=== PATIENT | male | born 2000 | race Caucasian/White ===

== ENCOUNTER 2021-09-16 07:35 | Emergency (ER) | payer OTHER ==
[~2021-09-16] VITALS: Ht 175.3 cm; Wt 59.0 kg
[2021-09-16] MEDS ORDERED: OXYCODONE/APAP 5-325 MG TABLET PO ONE (08:00)
[2021-09-16] MEDS ORDERED: OXYCODONE/APAP 5-325 MG TABLET ONE (08:01)
[2021-09-16] MEDS ORDERED: ASPI-869 PO (08:10)
[2021-09-16] MEDS ORDERED: DOCU100C36 PO (08:10)
[2021-09-16] MEDS ORDERED: OXYC-133 PO (08:10)
[2021-09-16] MEDS ORDERED: METH-806 PO (08:10)
[2021-09-16 08:31] LABS: MEAN CORPUSCULAR HEMOGLOBIN 31.2 uug (23.8-33.4); MEAN CORPUSCULAR VOLUME 88.6 fL (73.0-96.2); PLATELET COUNT (AUTO) 256 K/uL (152-348)
[2021-09-16 08:42] LABS: HEMATOCRIT 18.8 % (36.7-47.1)
[2021-09-16] MEDS ORDERED: DOCU-141 PO (08:47)
[2021-09-16 08:56] VITALS: BP 142/75
[2021-09-16 17:30] LABS: BAND % (MANUAL) 1 % (0-10); BASOPHILS % (MANUAL) 0 % (0-2); EOSINOPHILS % (MANUAL) 0 % (0-8); LYMPHOCYTES % (MANUAL) 17 % (38-48); MONOCYTES % (MANUAL) 8 % (2-10); NEUTROPHILS % (MANUAL) 74 % (40-55)
== END 2021-09-16 08:57 | disposition home or self-care (01) ==
LOC: ER 07:35
DX: D64.9 Anemia, unspecified (principal); S72.91XD Unspecified fracture of right femur, subsequent encounter for closed fracture with routine healing; X58.XXXD Exposure to other specified factors, subsequent encounter
CPT/HCPCS: 36415; 70030-TC; 85025; A4663